=== PATIENT | female | born 1980 | race Caucasian/White ===

== ENCOUNTER 2021-09-13 18:41 | Emergency (ER) | payer MEDICAID ==
[~2021-09-13] VITALS: Ht 167.6 cm; Wt 66.0 kg
[2021-09-13] MEDS ORDERED: IBUP-2028 PO (19:25)
[2021-09-13] MEDS ORDERED: T3 PO (19:25)
[2021-09-13] MEDS ORDERED: ACETAMINOPHEN 325MG TABLET PO ONE (19:30)
[2021-09-13] MEDS ORDERED: KETOROLAC 60MG/2ML VIAL IM ONE (19:30)
[2021-09-13 20:02] VITALS: BP 142/73
== END 2021-09-13 20:04 | disposition home or self-care (01) ==
LOC: ER 18:49
DX: T14.8XXA Other injury of unspecified body region, initial encounter (principal); Z87.11 Personal history of peptic ulcer disease; Z98.890 Other specified postprocedural states; Y08.89XA Assault by other specified means, initial encounter; Y93.89 Activity, other specified; Y92.018 Other place in single-family (private) house as the place of occurrence of the external cause
CPT/HCPCS: 96372; 99283; J1885

== ENCOUNTER 2023-01-10 23:12 | Emergency (ER) | payer BC, MEDICAID ==
[~2023-01-10] VITALS: Ht 167.6 cm; Wt 60.0 kg
[~2023-01-10 23:12] MED LIST: IBUP-2028 PO; T3 PO
[2023-01-10 23:21] VITALS: BP 129/67; O2SAT 99
[2023-01-11] MEDS ORDERED: ACETAMINOPHEN 325MG TABLET PO STA (02:22)
[2023-01-11] MEDS ORDERED: BALANCED SALT IRRIG SOLN 15ML IR ONE (02:30)
[2023-01-11] MEDS ORDERED: TETRACAINE 0.5% OPHTH DROPS 4ML RIGHTEYE ONE (02:30)
[2023-01-11] MEDS ORDERED: FLUORESCEIN SODIUM 1MG/STRIP RIGHTEYE ONE (02:30)
[2023-01-11] MEDS ORDERED: CIPR5DRO RIGHTEYE (04:39)
[2023-01-11] MEDS ORDERED: NAPR-681 PO (04:39)
[2023-01-11 04:51] VITALS: PULSE 74; RESP 16; TEMP 98.3
== END 2023-01-11 04:50 | disposition home or self-care (01) ==
LOC: ER 23:12
DX: T15.91XA Foreign body on external eye, part unspecified, right eye, initial encounter (principal); S05.01XA Injury of conjunctiva and corneal abrasion without foreign body, right eye, initial encounter; X58.XXXA Exposure to other specified factors, initial encounter; Y93.89 Activity, other specified; Y92.89 Other specified places as the place of occurrence of the external cause; Y99.8 Other external cause status
CPT/HCPCS: 99283; 99284